=== PATIENT | male | born 1990 | race Two or more races ===

== ENCOUNTER 2024-10-10 13:13 | Emergency (ER) | payer MEDICAID, OTHER ==
[~2024-10-10] VITALS: Ht 175.3 cm; Wt 89.5 kg
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
--- NOTE | 2024-10-10 14:13 | DVH ---
CLINICAL INDICATION: Trauma, pain TECHNIQUE: 3 radiographic views of the left hand were obtained. Comparison: None FINDINGS/IMPRESSION: Comminuted and displaced fracture of the 5th metacarpal base.
[2024-10-10] MEDS ORDERED: IBUP-1456 PO (14:34)
[2024-10-10 14:38] VITALS: BP 137/86; PULSE 89; RESP 16; TEMP 98; O2SAT 96
== END 2024-10-10 14:41 | disposition home or self-care (01) ==
LOC: ER 13:13
DX: S62.397A Other fracture of fifth metacarpal bone, left hand, initial encounter for closed fracture (principal); X58.XXXA Exposure to other specified factors, initial encounter; F17.210 Nicotine dependence, cigarettes, uncomplicated; Y93.89 Activity, other specified; Y92.89 Other specified places as the place of occurrence of the external cause; Y99.8 Other external cause status
CPT/HCPCS: 29125; 73130